=== PATIENT | female | born 1970 | race Caucasian/White ===

== ENCOUNTER → 2021-06-06 14:47 | Outpatient (CLI) | payer BC, SELFPAY | PROVIDERS: PCP Family Medicine; Visit Provider Nurse Practitioner | DX: Z20.822 Contact with and (suspected) exposure to COVID-19 (principal) | CPT/HCPCS: C9803; U0003; U0005 ==

== ENCOUNTER 2022-02-03 12:16 | Emergency (ER) | payer BC, SELFPAY ==
[2022-02-03 12:39] VITALS: BP 158/83; PULSE 96; RESP 18; TEMP 37.1; O2SAT 100; BMI 33.9
--- NOTE | 2022-02-03 12:49 | EXP.UTC ---
Discharge Plan Disposition Patient Disposition: Home, Self-Care Condition: Good Prescriptions Prescriptions: New albuterol sulfate 90 mcg/actuation HFA aerosol inhaler 1 inh inhalation QID PRN (Reason: shortness of breath or wheezing) Qty: 8.5 0RF xlooymxzbjrdgad-fbdszrkrn-ZW [Bromfed DM] 2-30-10 mg/5 mL syrup 10 ml PO Q6H PRN (Reason: cold symptoms) Qty: 200 0RF Referrals Follow up/Referrals: Cristo Maher [Primary Care Provider] - See instructions Activity Restrictions/Add. Instructions Additional Instructions/Restrictions: Self quarantine until results of Covid test are known. Take medication as prescribed. Increase fluids and rest. Clinical Impressions Clinical Impression: Acute bronchitis Qualifiers: Bronchitis organism: unspecified organism Qualified Code(s): J20.9 - Acute bronchitis, unspecified Instructions Patient Instructions: DI for Acute Bronchitis Discharge ED Provider: Aura Hall [facility] General Stated complaint: Covid test, cough, fever Mode of Arrival: Ambulatory Source of Information: Patient Limitations: No Limitations Time Seen by Provider: 02/03/22 12:49 Description of Symptoms (Recalled from Triage Doc. by RN): pt comes in with c/o covid exposure from coworker. symptoms include cough, fever (up to 102), mild diarrhea. symptoms began yesterday HEENT Symptoms (Recalled from RN notes): No Resp Symptoms (Recalled from RN notes): Yes Skin Symptoms (Recalled from RN notes): No MS Symptoms (Recalled from RN notes): No Functional Status (Recalled from RN notes): n/a History of Present Illness Provider Complaint: Pt relates that there has been Covid and another URI going around work. She states that she woke herself up through the night wheezing. She reports clear sinus drainage, occasional productive cough with clear phlegm, and fever up to 102. She has taken Tylenol for her symptoms. Related Data Previous Rx's Medication Instructions Recorded albuterol sulfate 90 mcg/actuation 1 inh inhalation QID PRN shortness 02/03/22 aerosol inhaler of breath or wheezing #8.5 grams nlfqbzvmfyucynn-xpvpgoxrbkzudwu-EK 10 ml PO Q6H PRN cold symptoms 02/03/22 2 mg-30 mg-10 mg/5 mL oral syrup #200 mL (Bromfed DM) Allergies Allergy/AdvReac Type Severity Reaction Status Date / Time aspirin Allergy Verified 02/03/22 12:43 Worker's Comp Is this a Worker's Comp case?: No PFSH PFSH Social History Smoking Status: Current every day smoker alcohol intake: current current occupational status: employed Travel in the last 8 weeks: None ROS Obtained: Yes All systems reviewed & no additional complaints except as documented Constitutional Constitutional: Reports chills and Reports fever(s) Eyes Eyes: Reports system reviewed and no additional complaints, except as documented ENT Ears, Nose, Mouth, and Throat: Reports nasal discharge Cardiovascular Cardiovascular: Reports system reviewed and no additional complaints, except as documented Respiratory Respiratory: Reports as per HPI and Reports cough with sputum production Gastrointestinal Gastrointestingal: Reports as per HPI and diarrhea Genitourinary Female Genitourinary: Reports system reviewed and no additional complaints, except as documented Musculoskeletal Musculoskeletal: Reports system reviewed and no additional complaints, except as documented Integumentary/Breasts Skin/Breast: Reports system reviewed and no additional complaints, except as documented Neurologic Neurologic: Reports system reviewed and no additional complaints, except as documented Endocrine Endocrine: Reports system reviewed and no additional complaints, except as documented Hematologic/Lymphatic Henatologic/Lymphatic: Reports system reviewed and no additional complaints, except as documented Allergic/Immunologic Allergic/Immunologic: Reports system reviewed and no additional complaints, except as documented Physical Exam General General appearance
[2022-02-03 13:06] VITALS: BP 158/83; PULSE 96; RESP 18; TEMP 37.1
== END 2022-02-03 13:09 | disposition home or self-care (01) ==
PROVIDERS: Emergency Provider Nurse Practitioner Family; PCP Family Medicine
DX: J02.9 Acute pharyngitis, unspecified (principal); R50.9 Fever, unspecified; F17.210 Nicotine dependence, cigarettes, uncomplicated; Z20.822 Contact with and (suspected) exposure to COVID-19; Z79.51 Long term (current) use of inhaled steroids; Z88.6 Allergy status to analgesic agent
CPT/HCPCS: 96372; 99213; C9803; G0463; U0003; U0005

== ENCOUNTER 2023-01-15 10:26 | Emergency (ER) | payer BC, SELFPAY ==
[2023-01-15 11:20] VITALS: BP 150/72; PULSE 77; RESP 20; TEMP 36.7; O2SAT 98; BMI 35.2
[2023-01-15 11:34] VITALS: BP 150/72; PULSE 77; RESP 20; TEMP 36.7; O2SAT 98
--- NOTE | 2023-01-15 11:49 | EXP.UTC ---
Discharge Plan Disposition Patient Disposition: Home, Self-Care Condition: Good Prescriptions Prescriptions: No Action albuterol sulfate 90 mcg/actuation HFA aerosol inhaler 1 inh inhalation QID PRN (Reason: shortness of breath or wheezing) Qty: 8.5 0RF yfzttrdyyykqyfu-rbjljtwqd-UU [Bromfed DM] 2-30-10 mg/5 mL syrup 10 ml PO Q6H PRN (Reason: cold symptoms) Qty: 200 0RF Referrals Follow up/Referrals: Cristo Maher [Primary Care Provider] - See instructions Activity Restrictions/Add. Instructions Additional Instructions/Restrictions: Prescribed Naproxen 500mg BID and Medrol dose pack take as directed, follow up with your Family Doctor if no improvement Clinical Impressions Clinical Impression: Tendonitis Instructions Patient Instructions: DI for Tendinitis Discharge ED Provider: Hayley Washburn [facility] General Stated complaint: right shoulder pain, unknown origin Mode of Arrival: Ambulatory Source of Information: Patient Limitations: No Limitations Time Seen by Provider: 01/15/23 11:49 Description of Symptoms (Recalled from Triage Doc. by RN): PATIENT C/O RIGHT SHOULDER PAIN THAT STARTED SATURDAY, NO KNOWN INJURY HEENT Symptoms (Recalled from RN notes): No Resp Symptoms (Recalled from RN notes): No Skin Symptoms (Recalled from RN notes): No MS Symptoms (Recalled from RN notes): Yes Functional Status (Recalled from RN notes): WNL History of Present Illness Provider Complaint: Patient states that she has been having pain in her right shoulder for the last couple of days hurts to raise it up States that she hasnt done anything to hurt it that she knows of state feels like it did when she had tendonitis before Related Data Previous Rx's Medication Instructions Recorded albuterol sulfate 90 mcg/actuation 1 inh inhalation QID PRN shortness 02/03/22 aerosol inhaler of breath or wheezing #8.5 grams kzcrgztbhvikwdg-jgbwhlhzzeaenyc-MN 10 ml PO Q6H PRN cold symptoms 02/03/22 2 mg-30 mg-10 mg/5 mL oral syrup #200 mL (Bromfed DM) Allergies Allergy/AdvReac Type Severity Reaction Status Date / Time aspirin Allergy Verified 02/03/22 12:43 Worker's Comp Is this a Worker's Comp case?: No [facility] Disclaimer: The information contained in this section may have been updated after the patient was seen, as this information can be updated by other users. Social History (Updated 02/03/22 @ 13:06 by Aura Hall APRN) Smoking Status: Current every day smoker alcohol intake: current current occupational status: employed Travel in the last 8 weeks: None ROS Obtained: Yes All systems reviewed & no additional complaints except as documented and Yes Systems reviewed as appropriate & no additional complaints except as documented Constitutional Constitutional: Reports system reviewed and no additional complaints, except as documented and Reports as per HPI Cardiovascular Cardiovascular: Reports system reviewed and no additional complaints, except as documented and Reports as per HPI Musculoskeletal Musculoskeletal: Reports system reviewed and no additional complaints, except as documented and Reports as per HPI Comments: Pain in right shoulder worse with movement and hurts when she raises it up denies known injury Physical Exam General General appearance: alert and in no apparent distress Chest Chest inspection: Present normal inspection and symmetric chest wall rise Respiratory Respiratory exam: Present normal lung sounds bilaterally; Absent respiratory distress or wheezes Cardiovascular Cardiovascular exam: Present regular rate, normal rhythm and normal heart sounds Expanded Upper Extremity Exam Right: Shoulder exam: Present tenderness and other (pain in right shoulder worse with trying to raise her arm no bruising no swelling no redness) Vascular exam: Normal capillary refill and radial pulse Neurological Exam Neurological exam: Present alert, oriented X3 and normal gait Med
== END 2023-01-15 12:15 | disposition home or self-care (01) ==
PROVIDERS: Emergency Provider Nurse Practitioner; PCP Family Medicine
DX: M75.31 Calcific tendinitis of right shoulder (principal); F17.210 Nicotine dependence, cigarettes, uncomplicated
CPT/HCPCS: 73030; 99212; 99214; G0463

== ENCOUNTER 2023-02-22 10:55 | Emergency (ER) | payer BC, SELFPAY ==
[2023-02-22 11:20] VITALS: BP 158/96; PULSE 71; RESP 18; TEMP 36.6; O2SAT 97; BMI 33.9
--- NOTE | 2023-02-22 11:26 | EXP.UTC ---
Discharge Plan Disposition Patient Disposition: Home, Self-Care Condition: Good Prescriptions Prescriptions: New Paxlovid 300 mg (150 mg x 2)-100 mg tablets,dose pack See Rx Instructions .ROUTE .COMPLEX Qty: 30 0RF Rx Instructions: take TWO 150 mg tablets of nirmatrelvir with ONE 100 mg tablet of ritonavir twice daily for 5 days prednisone [prednisone] 20 mg tablet 20 mg PO BID 4 Days Qty: 8 0RF benzonatate [benzonatate] 100 mg capsule 100 mg PO TIDP PRN (Reason: Cough) Qty: 30 0RF No Action albuterol sulfate 90 mcg/actuation HFA aerosol inhaler 1 inh inhalation QID PRN (Reason: shortness of breath or wheezing) Qty: 8.5 0RF lrcpirghpqqffud-jdqgcitjw-NF [Bromfed DM] 2-30-10 mg/5 mL syrup 10 ml PO Q6H PRN (Reason: cold symptoms) Qty: 200 0RF Referrals Follow up/Referrals: Cristo Maher [Primary Care Provider] - See instructions Activity Restrictions/Add. Instructions Additional Instructions/Restrictions: Drink plenty of fluids. Take tylenol or ibuprofen for pain or fever. Take the medications as directed. Follow up with your regular doctor. GO TO THE ER FOR ANY WORSENING SYMPTOMS Clinical Impressions Clinical Impression: COVID-19 Instructions Patient Instructions: Coronavirus Disease 2019, Preventing the Spread of Coronavirus Discharge Instructions Discharge ED Provider: Kervin Fernandez [facility] General Stated complaint: covid+, [place], cough, runny nose Time Seen by Provider: 02/22/23 11:26 History of Present Illness Provider Complaint: She states that she started feeling bad 3 days ago. She has had headache, fever, chills, and a nonproductive cough. She tested positive for covid-19 on a home test today. Related Data Previous Rx's Medication Instructions Recorded albuterol sulfate 90 mcg/actuation 1 inh inhalation QID PRN shortness 02/03/22 aerosol inhaler of breath or wheezing #8.5 grams fdoxvujfxupmcdv-rghlmyksicysegb-OX 10 ml PO Q6H PRN cold symptoms 02/03/22 2 mg-30 mg-10 mg/5 mL oral syrup #200 mL (Bromfed DM) benzonatate 100 mg capsule 100 mg PO TIDP PRN Cough #30 caps 02/22/23 nirmatrelvir 300 mg (150 mg See Rx Instructions PO .COMPLEX 02/22/23 x2)-ritonavir 100 mg tablet,dose #30 tabs pack (Paxlovid) prednisone 20 mg tablet 20 mg PO BID 4 days #8 tabs 02/22/23 Allergies Allergy/AdvReac Type Severity Reaction Status Date / Time aspirin Allergy Verified 02/22/23 11:47 [facility] Disclaimer: The information contained in this section may have been updated after the patient was seen, as this information can be updated by other users. Social History Smoking Status: Current every day smoker alcohol intake: current current occupational status: employed Travel in the last 8 weeks: None ROS Obtained: Yes All systems reviewed & no additional complaints except as documented Constitutional Constitutional: Reports chills and Reports fever(s) Eyes Eyes: Denies eye discharge ENT Ears, Nose, Mouth, and Throat: Reports as per HPI Cardiovascular Cardiovascular: Denies chest pain Respiratory Respiratory: Denies chest congestion and Reports cough Gastrointestinal Gastrointestingal: Reports nausea; Denies abdominal pain, constipation, cramping, diarrhea or vomiting Musculoskeletal Musculoskeletal: Denies arthralgias Integumentary/Breasts Skin/Breast: Denies rash Neurologic Neurologic: Denies paresthesias Physical Exam General General appearance: alert and in no apparent distress Eye Eye exam: Present normal appearance, PERRL and EOMI ENT ENT exam: Present mucous membranes moist and normal external ear exam Expanded ENT Exam External ear exam: Present normal external inspection TM/Canal exam: Bilateral TM: erythema and bulging Nose exam: Absent sinus tenderness Nasal speculum exam: Bilateral: normal Mouth exam: Present normal external inspection; Absent drooling Teeth exam: Present norm
[2023-02-22 12:17] VITALS: BP 158/96; PULSE 71; RESP 18; TEMP 36.6; O2SAT 97
== END 2023-02-22 12:17 | disposition home or self-care (01) ==
PROVIDERS: Emergency Provider Nurse Practitioner Family; PCP Family Medicine
DX: U07.1 COVID-19 (principal); F17.210 Nicotine dependence, cigarettes, uncomplicated
CPT/HCPCS: 87635; 99212; 99214; G0463